=== PATIENT | male | born 1970 | race Caucasian/White ===

== ENCOUNTER 2019-09-16 10:33 | Outpatient (CLI) | payer BC ==
--- NOTE | 2019-09-16 11:00 | RAD ---
3 views right ankle: 09/16/2019 COMPARISON: None HISTORY: Pain FINDINGS: No displaced fracture or evidence of dislocation is seen. There is a tiny ossific density along the dorsal aspect of the talar neck measuring 2-3 mm, which may represent a tiny age indeterminant avulsion fracture. There is mild enthesophyte formation at the origin of the plantar aponeurosis and insertion of the Achilles tendon. IMPRESSION: No acute displaced fracture or dislocation is seen. Questionable age indeterminant puncta te talar avulsion fracture. Calcaneal enthesophyte formation as detailed above.
--- NOTE | 2019-09-16 11:08 | RAD ---
Right foot:4 views INDICATION:Pain COMPARISON:None FINDINGS: Tiny enthesophyte from the plantar calcaneus. Mild degenerative change in the intertarsal joints and tarsometatarsal joints. Metatarsals appear intact. Phalanges appear intact. MTP and IP joints unremarkable. Soft tissues unremarkable. IMPRESSION: No acute finding
== END 2019-09-16 10:34 | disposition home or self-care (01) ==
LOC: RAD 10:33
PROVIDERS: ATTEND Family Medicine
DX: M25.571 Pain in right ankle and joints of right foot (principal); M79.671 Pain in right foot; R93.7 Abnormal findings on diagnostic imaging of other parts of musculoskeletal system

== ENCOUNTER 2021-12-13 10:15 | Outpatient (CLI) | payer OTHER | END 2021-12-13 10:16 | disposition home or self-care (01) | LOC: DTY/OP 10:15 | PROVIDERS: ATTEND Surgery | DX: E66.01 Morbid (severe) obesity due to excess calories (principal) | CPT/HCPCS: 97802 ==

== ENCOUNTER 2022-02-25 11:23 | Outpatient (CLI) | payer BC ==
[2022-02-25 13:35] LABS: ALT (SGPT) 32 U/L (8-55); AST (SGOT) 21 U/L (5-34); Albumin 4.6 g/dL (3.5-5.0); Alkaline Phosphatase 106 U/L (40-110); Anion Gap 15 mmol/L (10-20); BUN (Urea Nitrogen) 23 mg/dL (8.4-25.7); Bilirubin, Total 0.4 mg/dL (0.2-1.2); Calc. Creatinine Clearance 0 mL/min (70-130); Calcium 9.7 mg/dL (7.8-10.44); Carbon Dioxide 25 mmol/L (22-29); Chloride 105 mmol/L (98-107); Globulin 2.4 g/dL (2.4-3.5); Glucose 103 mg/dL (70-105); Potassium 5.1 mmol/L (3.5-5.1); Sodium 140 mmol/L (136-145)
[2022-02-25 13:36] LABS: #Eosinphils 0.1 10x3/uL (0.0-0.5); #Monocytes 0.4 10x3/uL (0.0-1.1); #Neutrophils 4.9 10x3/uL (1.5-8.4); %Basophils 0.5 % (0.0-2.0); %Eosinophils 1.8 % (0.0-6.0); %Lymphocytes 24.8 % (18.0-47.0); %Monocytes 5.4 % (0.0-10.0); %Neutrophils 67.2 % (40.0-75.0); Hemoglobin 16.4 g/dL (13.5-17.5); Mean Corpuscular HGB CONC 33.5 g/dL (32.0-36.0); Mean Corpuscular Hemoglobin 31.7 pg (27.0-33.0); Mean Corpuscular Volume 94.6 fl (81.2-95.1); Mean Platelet Volume 10.4 fl (7.4-10.4); Platelet Count 282 10x3/uL (150-450); RBC Distribution Width 13.2 % (11.5-14.5); Red Blood Cell (RBC) Count 5.18 10x6/uL (4.32-5.72); White Blood Cell (WBC) Count 7.3 10x3/uL (3.5-10.5)
[2022-02-25 16:59] LABS: Hemoglobin A1c 6.9 % (4.0-6.0)
[2022-02-26 16:09] LABS: SARS-CoV-2 PCR by NAA Not Detected (NotDetected)
== END 2022-02-25 11:24 | disposition home or self-care (01) ==
LOC: LABBT 11:23
PROVIDERS: ATTEND Surgery
DX: Z01.818 Encounter for other preprocedural examination (principal); E66.01 Morbid (severe) obesity due to excess calories; Z20.822 Contact with and (suspected) exposure to COVID-19
CPT/HCPCS: 71046; 80053; 83036; 85025; 93005; 93010; U0003; U0005

== ENCOUNTER 2022-02-25 11:30 | Inpatient (IN) | payer BC ==
[2022-02-23 14:45] VITALS: BMI 41.1
[2022-03-01] MEDS ORDERED: HYDROmorphone 0.5 MG/0.5 ML SYRINGE ONE ×3 (06:29→09:19)
[2022-03-01] MEDS ORDERED: Fentanyl 100 MCG/2 ML VIAL ONE ×2 (06:29→09:23)
[2022-03-01] MEDS ORDERED: Heparin 5,000 UNITS/ML VIAL ONE (06:35)
[2022-03-01] MEDS ORDERED: Bupivacaine 0.25% 10 ML VIAL ONE (06:39)
[2022-03-01] MEDS ORDERED: Lidocaine 1% w/Epinephrine 1:100K 20 ML VIAL ONE (06:40)
[2022-03-01] MEDS ORDERED: SUGAMMADEX SODIUM 200 MG/2 ML VIAL ONE (07:15)
[2022-03-01] MEDS ORDERED: ceFAZolin (BATCH) 2 GM/100 ML BAG ONE (07:29)
[2022-03-01] MEDS ORDERED: Ketorolac Tromethamine 30 MG/ML VIAL ONE (07:31)
[2022-03-01] MEDS ORDERED: Rocuronium Bromide 10 MG/ML (10ML VIAL) ONE (07:31)
[2022-03-01] MEDS ORDERED: Ondansetron PF 4 MG/2 ML Vial ONE (07:31)
[2022-03-01] MEDS ORDERED: PROPOFOL 200 MG/20 ML VIAL ONE (07:31)
[2022-03-01] MEDS ORDERED: Lidocaine 1% PF 5 ML VIAL ONE (07:31)
[2022-03-01] MEDS ORDERED: Dexamethasone 20 MG/5 ML VIAL ONE (07:31)
[2022-03-01] MEDS ORDERED: Ondansetron HCl/PF 4 MG/2 ML Vial IVP PRN (08:54)
[2022-03-01] MEDS ORDERED: Promethazine HCl 25 MG/ML VIAL IM PRN ×3 (08:54→15:55)
[2022-03-01] MEDS ORDERED: Meperidine HCl/PF 25 MG/ML VIAL SLOW IVP PRN (08:54)
[2022-03-01] MEDS ORDERED: Promethazine HCl 25 MG/ML VIAL IVPB PRN (08:54)
[2022-03-01] MEDS ORDERED: HYDROmorphone 2 MG/ML VIAL SLOW IVP PRN (08:54)
[2022-03-01] MEDS ORDERED: diphenhydrAMINE 25 MG CAP PO PRN (09:45)
[2022-03-01] MEDS ORDERED: Zolpidem Tartrate 5 MG TAB PO PRN (09:45)
[2022-03-01] MEDS ORDERED: diphenhydrAMINE 50 MG/ML VIAL IM/IV PRN (09:45)
[2022-03-01] MEDS ORDERED: Naloxone HCl 0.4 mg/ml Vial IV PRN (09:45)
[2022-03-01] MEDS ORDERED: Ondansetron PF 4 MG/2 ML Vial IVP PRN ×2 (09:45→15:55)
[2022-03-01] MEDS ORDERED: Fentanyl CADD 100 ML IVPB SCH (10:00)
[2022-03-01] MEDS ORDERED: Dextrose 5% in Water 1,000 ML IV PRN (15:55)
[2022-03-01] MEDS ORDERED: HumaLOG 300 UNITS/3 ML VIAL SC PRN (15:55)
[2022-03-01] MEDS ORDERED: hydrALAZINE 20 MG/ML VIAL SLOW IVP PRN (15:55)
[2022-03-01] MEDS ORDERED: Dextrose 50% Abboject 50 ML SYRINGE SLOW IVP PRN (15:55)
[2022-03-01] MEDS ORDERED: diphenhydrAMINE 50 MG/ML VIAL IVP PRN (15:55)
[2022-03-01] MEDS ORDERED: Pantoprazole 40 MG VIAL IVP SCH (16:15)
[2022-03-01] MEDS ORDERED: diphenhydrAMINE 50 MG/ML VIAL IM PRN (16:15)
[2022-03-01] MEDS: Pantoprazole 40 MG VIAL IVP SCH (17:08)
[2022-03-01] MEDS: Sodium Chloride 0.9% 1,000 ML IV SCH ×2 (17:11→23:59)
[2022-03-01] MEDS ORDERED: Sodium Chloride 0.9% 1,000 ML IV SCH (22:45)
[2022-03-02] MEDS ORDERED: Hydrocodone-Acetamin 15 ML UDCUP PO PRN (04:50)
[2022-03-02 05:20] LABS: #Lymphocytes 2.1 thou/uL (1.20-3.40); #Monocytes 0.8 thou/uL (0.11-0.59); #Neutrophils 8.2 thou/uL (1.40-6.50); %Basophils 0.2 % (0.0-1.0); %Eosinophils 0.2 % (0.0-10.0); %Lymphocytes 18.7 % (21.0-51.0); %Monocytes 6.8 % (0.0-10.0); %Neutrophils 74.1 % (42.0-75.0); Hemoglobin 12.2 g/dL (14.0-18.0); Mean Corpuscular HGB CONC 33.5 g/dL (32.0-36.0); Mean Corpuscular Hemoglobin 33.3 pg (27.0-31.0); Mean Corpuscular Volume 99.5 fL (78.0-98.0); Mean Platelet Volume 7.6 fL (7.4-10.4); Platelet Count 288 thou/uL (130-400); RBC Distribution Width 12.2 % (11.5-14.5); Red Blood Cell (RBC) Count 3.65 mill/uL (4.70-6.10)
[2022-03-02 05:39] LABS: Anion Gap 14 mmol/L (10-20); BUN (Urea Nitrogen) 15 mg/dL (8.4-25.7); Calc. Creatinine Clearance 165 mL/min (70-130); Calcium 8.1 mg/dL (7.8-10.44); Carbon Dioxide 22 mmol/L (22-29); Chloride 106 mmol/L (98-107); Glucose 129 mg/dL (70-105); Potassium 4.4 mmol/L (3.5-5.1); Sodium 138 mmol/L (136-145)
[2022-03-02] MEDS ORDERED: Lisinopril 20 MG TAB PO SCH (09:00)
[2022-03-02] MEDS ORDERED: Enoxaparin Sodium 40 MG/0.4 ML SYRINGE SC SCH (09:00)
[2022-03-02] MEDS: Sodium Chloride 0.9% 1,000 ML IV SCH (10:18)
[2022-03-02] MEDS: Pantoprazole 40 MG VIAL IVP SCH (10:24)
[2022-03-02 11:52] VITALS: BP 111/70; TEMP 98.6
== END 2022-03-02 12:48 | disposition home or self-care (01) | DRG 621 ==
LOC: SURG A 03-01 05:56 → EDSTATUS 03-01 11:30 → SURG B 03-01 12:52
PROVIDERS: ADMIT Surgery; ATTEND Surgery
PROC: 0DB64Z3 Excision of Stomach, Percutaneous Endoscopic Approach, Vertical (ICD-10-PCS; principal; 2022-03-01)
PROC: 8E0W4CZ Robotic Assisted Procedure of Trunk Region, Percutaneous Endoscopic Approach (ICD-10-PCS; 2022-03-01)
DX: E66.01 Morbid (severe) obesity due to excess calories (principal); Z20.822 Contact with and (suspected) exposure to COVID-19; E11.9 Type 2 diabetes mellitus without complications; I10 Essential (primary) hypertension; G47.30 Sleep apnea, unspecified; Z79.84 Long term (current) use of oral hypoglycemic drugs; Z68.41 Body mass index [BMI] 40.0-44.9, adult; Z79.899 Other long term (current) drug therapy
CPT/HCPCS: 36415; 36416; 80048; 85025; 88307; C1713; C9113; J0690; J1100; J1170; J1644; J1650; J1885; J2405; J2704; J3010; J7050; S0020